=== PATIENT | male | born 1980 | race Caucasian/White ===

== ENCOUNTER 2023-07-30 00:16 | Emergency (ER) | payer OTHER, SELFPAY ==
--- NOTE | ~2023-07-30 | CT_ITS ---
CT of the Abdomen and Pelvis: Indication: Abdominal pain Technique: 2.5 mm axial scans were obtained through the abdomen and pelvis following intravenous adm inistration of 100 cc of Omnipaque 350. Dose reduction technique was used on this scan by utilizing a utomated exposure control and iterative reconstruction technique. The dose-length product (DLP) was 7 12.89 mGy-cm. Findings: Scans through the lung bases are unremarkable. The liver, spleen, pancreas, gallbladder, adrenals and left kidney are within normal limits. No evid ence of aortic aneurysm. No lymphadenopathy. There is a 3 mm right UVJ stone, with mild right hydroureteronephrosis. There is right perinephric st randing. There are additional nonobstructing right renal stones, largest measuring 6 mm. No bowel obstruction or bowel wall thickening. There is no evidence to suggest acute appendicitis. Images through the pelvis were performed. Urinary bladder otherwise unremarkable. No pelvic mass seen . No ascites. Impression: 3 mm right UVJ stone with mild right hydroureteronephrosis and right perinephric stranding. Additional nonobstructing right renal stones, as detailed above. Reviewed, dictated and finalized at location . [facility] Impression: 3 mm right UVJ stone with mild right hydroureteronephrosis and right perinephri c stranding. Additional nonobstructing right renal stones, as detailed above.
[2023-07-30 00:23] VITALS: BP 132/84; PULSE 60; RESP 20; TEMP 36.3; O2SAT 98
[2023-07-30] MEDS: SODIUM CHLORIDE 0.9% IV 1,000 ML 999 ML IV CONT (02:43)
[2023-07-30] MEDS: MORPHINE SULFATE (*CRX) 4 MG/ML INJ IV PUSH ×2 (02:43→06:42)
[2023-07-30] MEDS: ONDANSETRON INJ 4 MG/2 ML VIAL IV PUSH ×2 (02:44→06:43)
[2023-07-30 02:45] LABS: Bacteria Urine None Seen /hpf; Non Pathogenic Casts 0-2; Squamous Epithelial Cell Urine None seen /hpf (Few); WBC Urine 0-5 /hpf
[2023-07-30 02:49] LABS: Appearance Urine Clear (Clear); Bilirubin Urine Negative (Negative); Blood Urine 1+ (Negative); Color Urine Yellow (Yellow); Glucose Urine UA Negative (Negative); Ketones Urine Trace mg/dL (Negative); Leukocyte Esterase Ur Negative LEU/UL (Negative); Nitrate Urine Negative (Negative); Protein Urine 1+ mg/dL (Negative); Specific Grav Ur >= 1.030 (1.001-1.035); Urobilinogen Urine 0.2 mg/dL (<2.0); pH Urine 5.5 (5.0-9.0)
[2023-07-30 02:50] LABS: Add Urine Microscopic? YES
[2023-07-30 02:53] LABS: Hematocrit 40.7 % (42.0-52.0); Hemoglobin 14.2 g/dL (14.0-18.0); Mean Corpuscular HGB Conc 34.9 g/dl (32-36); Mean Corpuscular Hemoglobin 30.5 pg (26-34); Mean Corpuscular Volume 87.5 fl (80-100); Mean Platelet Volume 10.8 fl (7.4-10.4); Platelet Count Result 241 k/mm3 (150-375); Red Blood Count 4.65 M/mm3 (4.6-6.20); Red Cell Distribution Width 11.4 % (11.5-14.5); White Blood Count 9.8 K/mm3 (4.5-10.0)
[2023-07-30 02:59] LABS: Total Cells Counted 100
[2023-07-30 03:00] LABS: Band Neutrophils Percent 10 % (0-6); Eosinophils Absolute Manual 0.09 K/mm3 (0.02-0.5); Eosinophils Percent Manual 1 % (0-4); Hypochromasia 1+ (NORMAL); Large Platelets Present; Lymphocytes Absolute Manual 0.49 K/mm3 (1.1-4.5); Lymphocytes Percent Manual 5 % (18-44); Monocytes Absolute Manual 0.29 K/mm3 (0.1-0.90); Monocytes Percent Manual 3 % (3-9); Neutrophils Absolute Manual 8.91 K/mm3 (1.3-6.7); Neutrophils Percent Manual 81 % (46-73); Ovalocytes 1+ (NORMAL); Platelet Estimate Adequate (Adequate); Schistocytes None Seen (NORMAL)
[2023-07-30 03:06] LABS: Alanine Aminotransferase 26 U/L (6-50); Albumin Level 4.5 g/dL (3.5-5.1); Alkaline Phosphatase 71 U/L (38-126); Anion Gap 11 mmol/L (8-16); Aspartate Amino Transferase 27 U/L (17-59); Bilirubin,Total 0.7 mg/dL (0.2-1.3); Blood Urea Nitrogen 17 mg/dL (9-20); Calcium 9.5 mg/dL (8.4-10.2); Carbon Dioxide 24 mmol/L (22-30); Chloride 97 mmol/L (98-107); Estimated CRCL calculation 96 ml/min; Estimated Glomerular Filt Rate > 60; Glucose 140 mg/dL (65-110); Lipase 84 U/L (23-300); Potassium 3.7 mmol/L (3.4-5.0); Sodium 132 mmol/L (137-145)
--- NOTE | 2023-07-30 03:14 | ED.ABDPAIN ---
HPI - Abdominal Pain General Chief Complaint: Abdominal Pain Stated Complaint: RLQ abd pain Time Seen by Provider: 07/30/23 02:39 History of Present Illness HPI narrative: patient is a 6-year-old gentleman who presents emergency department with chief complaint of right lower quadrant abdominal pain started around 9:00 p.m. patient reports that he has felt very sweaty reports that he still has appendix patient reports pain is not improved by anything reports it is worsened by movement. Related Data Allergies Allergy/AdvReac Type Severity Reaction Status Date / Time Penicillins Allergy Other Verified 07/30/23 02:55 Review of Systems Review of Systems: A 10 system review of systems was completed on the patient and is negative except for what is stated in the HPI. Nursing and ancillary documentation was reviewed. Exam Narrative: GENERAL: Well-appearing, well-nourished, and in no acute distress. slightly diaphoretic HEAD: Normocephalic, atraumatic. EYES: PERRLA and EOMI. ENT: Nares clear, no rhinorrhea or epistaxis. Mucous membranes moist. NECK: Supple. CHEST: Clear to auscultation. No respiratory distress. HEART: Regular rate and rhythm. No murmur heard. Normal peripheral pulses. ABDOMEN: Soft, Tenderness to palpation in right lower quadrant nondistended, normal active bowel sounds. EXTREMITIES: Normal range of motion. No edema. SKIN: Warm, dry, no rash. NEURO: No focal deficits. Alert and oriented x3. PSYCH: Normal mood and affect. Course Vital Signs Vital signs: Vital Signs Temperature 36.3 C L 07/30/23 00:23 Pulse Rate 60 07/30/23 00:23 Respiratory Rate 20 07/30/23 00:23 Blood Pressure 132/84 07/30/23 00:23 Pulse Oximetry 98 07/30/23 00:23 Oxygen Delivery Room Air 07/30/23 00:23 Temperature 36.3 C L 07/30/23 00:23 Pulse Rate 60 07/30/23 05:37 Respiratory Rate 15 07/30/23 05:37 Blood Pressure 132/94 H 07/30/23 05:37 Pulse Oximetry 98 07/30/23 05:37 Oxygen Delivery Room Air 07/30/23 00:23 MDM - Abdominal Pain MDM Narrative Medical decision making narrative: differential diagnosis includes appendicitis, diverticulitis, had ureterolithiasis CT scan of the abdomen pelvis showed a 3 mm stone who Lab Data 07/30/23 02:47 07/30/23 02:47 Labs: Lab Results 07/30/23 07/30/23 Range/Units 02:30 02:47 WBC 9.8 (4.5-10.0) K/mm3 RBC 4.65 (4.6-6.20) M/mm3 Hgb 14.2 (14.0-18.0) g/dL Hct 40.7 L (42.0-52.0) % MCV 87.5 (80-100) fl MCH 30.5 (26-34) pg MCHC 34.9 (32-36) g/dl RDW 11.4 L (11.5-14.5) % Plt Count 241 (150-375) k/mm3 MPV 10.8 H (7.4-10.4) fl Immature Gran % (Auto) Not Reportable Neut % (Auto) Not Reportable Lymph % (Auto) Not Reportable [place] % (Auto) Not Reportable Eos % (Auto) Not Reportable Baso % (Auto) Not Reportable Lymph # (Auto) Not Reportable [place] # (Auto) Not Reportable Eos # (Auto) Not Reportable Baso # (Auto) Not Reportable Abs Immat Gran (auto) Not Reportable Absolute Neuts (auto) Not Reportable Absolute Nucleated RBC Not Reportable Total Counted 100 Neutrophils % (Manual) 81 H (46-73) % Band Neutrophils % 10 H (0-6) % Lymphocytes % (Manual) 5 L (18-44) % Monocytes % (Manual) 3 (3-9) % Eosinophils % (Manual) 1 (0-4) % Nucleated RBC % Not Reportable Abs Neuts (Manual) 8.91 H (1.3-6.7) K/mm3 Abs Lymphs (Manual) 0.49 L (1.1-4.5) K/mm3 Abs Monocytes (Manual) 0.29 (0.1-0.90) K/mm3 Absolute Eos (Manual) 0.09 (0.02-0.5) K/mm3 Platelet Estimate Adequate (Adequate) Large Platelets Present Hypochromasia 1+ (NORMAL) Ovalocytes 1+ (NORMAL) Schistocytes None seen (NORMAL) Sodium 132 L (137-145) mmol/L Potassium 3.7 (3.4-5.0) mmol/L Chloride 97 L (98-107) mmol/L Carbon Dioxide 24 (22-30) mmol/L Anion Gap 11 (8-16) mmol/L BUN
[2023-07-30 05:37] VITALS: BP 132/94; PULSE 60; RESP 15; O2SAT 98
[2023-07-30] MEDS: TAMSULOSIN HCL 0.4 MG CAPSULE PO (06:43)
[2023-07-30 07:05] VITALS: BP 134/82; PULSE 66; RESP 15; O2SAT 99
== END 2023-07-30 07:06 | disposition home or self-care (01) ==
PROVIDERS: Emergency Provider Emergency Medicine
DX: N13.2 Hydronephrosis with renal and ureteral calculous obstruction (principal)
CPT/HCPCS: 36415; 74177; 80053; 81001; 83690; 85025; 96361; 96374; 96375; 96376; 99284; A9270; J2270; J2405; J7030; Q9967